=== PATIENT | male | born 1985 | race Caucasian/White ===

== ENCOUNTER 2016-12-17 14:34 | Emergency (ER) | payer SELFPAY ==
[~2016-12-17] VITALS: Ht 172.7 cm; Wt 79.4 kg
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
[2016-12-17 15:23] VITALS: BP 118/62
--- NOTE | 2016-12-17 15:25 | NUR ---
PATIENT REFUSING EKG, DESPITE NUMEROUS ATTEMPTS. PATIENT ALSO REFUSED ALL BLOOD DRAWS. PATIENT EDUCATION PROVIDED. PATIENT STILL STATING HE WANTS TO LEAVE HOSPITAL AGAINST MEDICAL ADVICE. SEAN POMPA INFORMED AND ALLOWED PATIENT TO LEAVE AMA. NO BEHAVIORAL DISTURBANCE NOTED. PATIENT IS CALM AND COOPERATIVE. VITALS STABLE. NO SI/HI. PATIENT LEFT AMA.
== END 2016-12-17 15:25 | disposition left against medical advice (07) ==
LOC: ER 14:35
DX: F15.90 Other stimulant use, unspecified, uncomplicated (principal)
CPT/HCPCS: A4606; Z7610

== ENCOUNTER 2020-09-02 23:44 | Emergency (ER) | payer OTHER ==
[~2020-09-02] VITALS: Ht 177.8 cm; Wt 72.6 kg
[2020-09-02 23:45] VITALS: BP 130/81
[2020-09-03] MEDS ORDERED: LIDOCAINE 1%-EPI 1:100,000 20 ML VIAL ONE (00:31)
[2020-09-03] MEDS: TDAP [DIPH/PERTUSSIS/TET] 0.5 ML VIAL IM ONE (01:17)
== END 2020-09-03 01:26 | disposition home or self-care (01) ==
LOC: ER 23:47
DX: S01.81XA Laceration without foreign body of other part of head, initial encounter (principal); Y08.89XA Assault by other specified means, initial encounter; Y93.89 Activity, other specified; Y92.89 Other specified places as the place of occurrence of the external cause; Y99.8 Other external cause status
CPT/HCPCS: 70450; 99284; A6403; J3490